=== PATIENT | male | born 1955 | race African-American/Black ===

== ENCOUNTER 2019-07-04 12:26 | Emergency (ER) | payer MEDICAID ==
[~2019-07-04] VITALS: Ht 200.7 cm; Wt 81.2 kg
[2019-07-04 16:30] VITALS: BP 135/82
== END 2019-07-04 16:30 | disposition home or self-care (01) ==
LOC: ER 12:26
DX: K04.7 Periapical abscess without sinus (principal); H69.82 Other specified disorders of Eustachian tube, left ear; R68.84 Jaw pain; Z87.891 Personal history of nicotine dependence; Z98.890 Other specified postprocedural states
CPT/HCPCS: 70110; 99283

== ENCOUNTER 2019-08-27 15:38 | Emergency (ER) | payer MEDICAID ==
[~2019-08-27] VITALS: Ht 200.7 cm; Wt 79.0 kg
[2019-08-27 18:00] VITALS: BP 131/74
== END 2019-08-27 17:49 | disposition home or self-care (01) ==
LOC: ER 15:38
DX: G89.29 Other chronic pain (principal); K08.89 Other specified disorders of teeth and supporting structures; I10 Essential (primary) hypertension; Z98.890 Other specified postprocedural states
CPT/HCPCS: 99281